=== PATIENT | male | born 1950 | race American Indian/Alaskan Native ===

== ENCOUNTER 2023-01-21 14:57 | Inpatient (IN) | payer MEDICARE ==
[~2023-01-21] VITALS: Ht 182.9 cm; Wt 116.8 kg
--- OUTSIDE RECORDS SUMMARY | 2023-01-21 16:09 | XMS ---
PreManage Notification: CATA MORRIS Security Rn Hedis Events No recent Security Events currently on file CRITERIA MET - PDMP CARE PROVIDERS [facility] Current PHONE: Unknown Marleni has no Care Guidelines for this patient. EArcelia VISIT COUNT (12 MO.) 1 CONNIE Dc TOTAL 1 NOTE: Visits indicate total known visits. ED/UCC VISIT TRACKING (12 MO.) 01/21/2023 14:58 CONNIE Solorzano OR TYPE: Emergency COMPLAINT: - WOUND CARE RT FOOT INPATIENT VISIT TRACKING (12 MO.) No inpatient visits to display in this time frame [email or web address]
[2023-01-21] MEDS ORDERED: GABAPENTIN800 MG PO (17:48)
[2023-01-21] MEDS ORDERED: LISINOPRIL10 MG PO (17:48)
[2023-01-21] MEDS ORDERED: DULOXETINE HCL60 MG PO (17:48)
[2023-01-21] MEDS ORDERED: TAMSULOSIN HCL0.4 MG PO (17:49)
[2023-01-21] MEDS ORDERED: METFORMIN HCL500 M1 PO (17:49)
[2023-01-21] MEDS ORDERED: GLIMEPIRIDE1 MG PO (17:50)
[2023-01-21] MEDS ORDERED: ATORVASTATIN CA20 MG PO (17:50)
[2023-01-21 18:33] VITALS: BP 136/72
[2023-01-21 21:00] VITALS: BP 148/64
[2023-01-22 02:10] VITALS: BP 132/66
[2023-01-22 05:27] VITALS: BP 92/69
[2023-01-22 07:51] VITALS: BP 103/66
[2023-01-22] MEDS ORDERED: ETODOLAC500 M1 PO (10:41)
[2023-01-22 12:02] VITALS: BP 109/59
[2023-01-22 21:07] VITALS: BP 109/57
--- NOTE | 2023-01-22 22:56 | EKG ---
[facility] [address] [facility] [place] [address] Signed Sinus rhythm with blocked premature atrial complexes Otherwise normal ECG No previous ECGs available Confirmed by Fernando Tariq MD () on 01/22/2023 10:56:16 PM Electronically Signed By: FERNANDO TARIQ MD 01/22/23 2256 PATIENT NAME: CATA MORRISNE Electrocardiogram DATE OF : 54 PHYSICIAN: FERNANDO TARIQ MD REPORT #: [id number] REPORT IS CONFIDENTIAL AND NOT TO BE RELEASED WITHOUT AUTHORIZATION
[2023-01-23] VITALS (7 sets, daily range): BP systolic 99–127; BP diastolic 58–90
[2023-01-24 01:12] VITALS: BP 107/49
[2023-01-24 06:12] VITALS: BP 107/55
[2023-01-24 09:42] VITALS: BP 101/36
[2023-01-24 13:35] VITALS: BP 117/48
[2023-01-24 17:42] VITALS: BP 114/70
[2023-01-24 20:13] VITALS: BP 90/55
[2023-01-25 02:24] VITALS: BP 117/66
[2023-01-25 05:09] VITALS: BP 98/62
[2023-01-25 10:15] VITALS: BP 108/53
[2023-01-25] MEDS ORDERED: DAPTOMYCIN500 MG IV (11:22)
[2023-01-25 16:18] VITALS: BP 123/57
--- NOTE | 2023-01-27 10:23 | OR ---
[facility] [address] [place], [place] [address] Signed DATE OF OPERATION: 01/23/2023 SURGEON: Perfecot Callahan DPM PREOPERATIVE DIAGNOSES: 1. Ulcer and infection, right foot. 2. Diabetic ulcer, right foot. POSTOPERATIVE DIAGNOSES: 1. Ulcer and infection, right foot. 2. Diabetic ulcer, right foot. ANESTHESIA: IV general with local block right foot. ANESTHESIOLOGY MEDICAL DOCTOR: Yadiel. SPECIMEN TO PATHOLOGY: 1. Right 5th digit soft tissue and bone from 5th digit amputation. 2. Right 5th metatarsal head. DESCRIPTION OF PROCEDURE: The patient was brought to the operating room and placed on the table in the supine position. Anesthesia Department administered IV sedation after which a local block was given to the right foot using a total of 10 mL 1:1 mixture 2% lidocaine plain and 0.5% ropivacaine plain. The right leg and foot were then prepped and draped in the usual sterile manner and an Esmarch was used for hemostasis. Attention was initially directed to the right 5th digit. There was significant soft tissue necrosis to the toe with an ulceration just proximal to the toe dorsally over the 5th metatarsal and interdigital open wound between 4th and 5th toes and plantar ulcer at the 5th metatarsal head and at this point, the 5th digit was deemed too necrotic and an incision was made deep to bone circumferentially around the base of the 5th digit and connecting to the dorsal ulcer just proximal to the base of the toe. The soft tissues were reflected and the 5th digit disarticulated at the MTPJ and sent for pathology. The soft tissues around the 5th MTPJ were noted to be entirely necrotic both dorsal, plantar, medial, and lateral. At this time, the attention was directed to the soft tissues, which were exposed with amputation of the 5th digit, both around the distal aspect of the metatarsal head, but as well as the large amount of exposed area dorsally on the foot. The two dorsal ulcers were connected Electronically Signed By: PERFECTO CALLAHAN DPM 01/27/23 1023 PATIENT NAME: CATA MORRIS OPERATIVE REPORT DATE OF : 54 REPORT #: [id number] PHYSICIAN: PERFECTO CALLAHAN DPM PCP: JAYSON LLANOS MD REPORT IS CONFIDENTIAL AND NOT TO BE RELEASED WITHOUT AUTHORIZATION [facility] [address] [place], [place] [address] Signed at this time with a small incision and soft tissues then reflected to help expose the area of necrotic tissue, which was debrided with hand instrumentation. The necrosis extended across the base of at least two toes dorsally and a significant area over the dorsal lateral aspect of the foot showed significant subcutaneous tissue necrosis, but this did not appear to extend down to bone. It did extend down the lateral side of the foot towards the plantar surface and the soft tissues around the plantar ulcer at the 5th metatarsal head and the distal to the 5th metatarsal head had a large amount of necrosis, which again was debrided with hand instrumentation. The surgical site was irrigated with copious amounts of normal saline as well as Irrisept antibiotic irrigation. At this time, a probe was used to the 5th metatarsal, this appeared to be slightly soft distally at the 5th metatarsal head and deemed necessary to resect the 5th metatarsal head in an effort to eliminate the infection. This was done with power instrumentation, removing 1-1.5 cm of the distal aspect of the 5th metatarsal. At the level of the osteotomy, there appeared to be bleeding healthy bone, which was solid. The surgical site irrigated and a small amount of additional debridement performed. Then, the plantar ulcer excised and the margins to the 5th digit amputation site also trimmed back removing some of the more questionable appearing soft tissue at this site. Using 3-0 nylon monofilament suture, the site of the 5th digit amputation was closed and the plantar ulcer site was closed. The large area, which was ulcerated and open over the dorsum of the foot was left open and the calcium sulfate antibiotic beads containing vancomycin then placed throughout the surgical site. Dressings then applied consisting of Adaptic, dry gauze, ABD pads, Kerlix roll, and Coban to secure the dressings. INTRAOPERATIVE COMPLICATIONS: None. ESTIMATED BLOOD LOSS: Less than 10 mL. The patient tolerated the procedure and the anesthesia well and left the operating room with vital signs stable and vascular status intact to the right foot as evidenced by hyperemia with removal of the Esmarch. Perfecto Callahan DPM DFB/MODL /[id number] Electronically Signed By: PERFECTO CALLAHAN DPM 01/27/23 1023 PATIENT NAME: CATA MORRIS OPERATIVE REPORT DATE OF : 54 REPORT #: [id number] PHYSICIAN: PERFECTO CALLAHAN DPM PCP: JAYSON LLANOS MD REPORT IS CONFIDENTIAL AND NOT TO BE RELEASED WITHOUT AUTHORIZATION [address], [place] [address] Signed Copies: ~ Electronically Signed By: PERFECTO CALLAHAN DPM 01/27/23 1023 PATIENT NAME: ARTUROCATA OPERATIVE REPORT DATE OF : 54 REPORT #: [id number] PHYSICIAN: PERFECTO CALLAHAN DPM PCP: JAYSON LLANOS MD REPORT IS CONFIDENTIAL AND NOT TO BE RELEASED WITHOUT AUTHORIZATION
--- NOTE | 2023-01-28 15:03 | PATH ---
[facility] [address] [place], [place] [address] Signed SPECIMEN(S): A 5TH TOE SPECIMEN(S): B 5TH METATARSAL HEAD SPECIMEN SOURCE: A. 5TH TOE B. 5TH METATARSAL HEAD CLINICAL HISTORY: Diabetic foot wound FINAL PATHOLOGIC DIAGNOSIS: A. 5th toe: - Ulcerated toe with prominent acute soft tissue inflammation (abscess), and necrosis. - Features focally consistent with acute osteomyelitis. - Acute inflammation and necrosis extends to the inked proximal surgical margins. - Proximal phalanx is positive for acute osteomyelitis. B. 5th metatarsal head: - Features consistent with acute osteomyelitis. - Proximal inked resection margin is free of significant pathologic inflammation. JVR:basia:C2NR MICROSCOPIC EXAMINATION: Histologic sections of all submitted blocks are examined by light microscopy. These findings, together with the gross examination, support the pathologic diagnosis. GROSS DESCRIPTION: A. The specimen, labeled and designated "Tim, A" and designated on the requisition "fifth toe," is received in formalin and consists of a toe (4.2 x 2.7 x 2.3 cm) and separate proximal phalanx (3.2 x 0.4 x 2.4 cm). The proximal aspect of the toe has glasgow-pink ulcerated skin with grossly nonviable soft tissue (3.0 x 2.5 cm) involving the skin and soft tissue margin (inked blue). The bone underlying the ulcerated softened tissue is red-brown and slightly softened. Sectioning of the proximal phalanx reveals galsgow-brown softened cut surface. [employer] Supervisor sections are submitted following decalcification in Decal Stat. Cassette Summary: PATIENT NAME: CATA MORRIS PATHOLOGY DATE OF : 54 REPORT #: [id number] PHYSICIAN: [employer] WILFREDO PCP: JAYSON LLANOS MD REPORT IS CONFIDENTIAL AND NOT TO BE RELEASED WITHOUT AUTHORIZATION [facility] [address] [place], [place] [address] Signed (A1-A2) distal toe with ulceration and skin and soft tissue margin (A3) proximal phalanx, longitudinal section B. The specimen, labeled and designated "Tim, B" and designated on the requisition "fifth metatarsal head," is received in formalin and consists of a metatarsal head (2.4 x 2.3 x 1.8 cm) with a smooth resection margin and smooth articular surface. The bone margin is inked blue and the specimen is serially sectioned to reveal a glasgow-brown unremarkable cut surface. A front office representative longitudinal section is submitted in cassette B1 following decalcification in Decal Stat. AC (under the direct supervision of a pathologist) The Gross Description was prepared using a voice recognition system. The report was reviewed for accuracy; however, sound-alike word errors, addition and/or deletions may occur. If there is any question about this report, please contact Client Services. PERFORMING LABORATORY: Technical component was performed by [facility], [address] [place] [id number] (CLIA# [id number]). Professional interpretation was performed by [facility], [address] [place] [id number] (CLIA#: [id number]). Diagnostician: Dank Farr MD Pathologist Electronically Signed 01/28/2023 Copies: ~ PATIENT NAME: TIMCATA PATHOLOGY DATE OF : 54 REPORT #: [id number] PHYSICIAN: SHERICE VILLALOBOS PCP: JAYSON LLANOS MD REPORT IS CONFIDENTIAL AND NOT TO BE RELEASED WITHOUT AUTHORIZATION
== END 2023-01-25 17:00 | disposition home or self-care (01) | DRG 617 ==
LOC: ED 14:57 → CCU 17:58 → MS 17:58 → CCU 01-22 10:10 → MS 01-22 10:10
PROVIDERS: Podiatrist Foot Surgery; ADMIT Family Medicine; ATTEND Internal Medicine
PROC: 02HV33Z Insertion of Infusion Device into Superior Vena Cava, Percutaneous Approach (ICD-10-PCS; 2023-01-21)
PROC: 0JBQ0ZZ Excision of Right Foot Subcutaneous Tissue and Fascia, Open Approach (ICD-10-PCS; 2023-01-23)
PROC: 0Y6M0ZF Detachment at Right Foot, Partial 5th Ray, Open Approach (ICD-10-PCS; principal; 2023-01-23 09:00)
DX: E11.69 Type 2 diabetes mellitus with other specified complication (principal); E11.52 Type 2 diabetes mellitus with diabetic peripheral angiopathy with gangrene; I96 Gangrene, not elsewhere classified; M86.8X7 Other osteomyelitis, ankle and foot; E11.621 Type 2 diabetes mellitus with foot ulcer; L97.512 Non-pressure chronic ulcer of other part of right foot with fat layer exposed; B96.89 Other specified bacterial agents as the cause of diseases classified elsewhere; I10 Essential (primary) hypertension; F39 Unspecified mood [affective] disorder; E83.42 Hypomagnesemia; I49.9 Cardiac arrhythmia, unspecified; F10.90 Alcohol use, unspecified, uncomplicated; Z79.4 Long term (current) use of insulin; Z98.890 Other specified postprocedural states; Z79.899 Other long term (current) drug therapy
CPT/HCPCS: 01482; 36415; 36569; 71045; 73630; 80048; 80053; 82803; 83735; 83880; 84100; 85025; 87070; 87075; 87205; 88304; 88305; 88307; 88311; 93005; 93010; 96365; 97116; 97161; 99284 25; A9270; C1713; C1751; J0131; J0878; J1650; J1815; J1885; J2250; J2704; J2795; J3010; J3370; J7060; J7121